=== PATIENT | male | born 1945 | race Caucasian/White ===

== ENCOUNTER → 2021-02-05 09:36 | Outpatient (CLI) | payer MEDICARE, OTHER, SELFPAY ==
[2021-02-05 19:47] LABS: COVID19 -Nasal RAPID Negative (Negative)
== END ==
PROVIDERS: Visit Provider Nurse Practitioner Family
DX: Z20.822 Contact with and (suspected) exposure to COVID-19 (principal); Z01.812 Encounter for preprocedural laboratory examination
CPT/HCPCS: 87635; C9803

== ENCOUNTER 2021-02-06 09:27 | Day surgery (SDC) | payer MEDICARE, OTHER, SELFPAY ==
[2021-02-06 10:19] VITALS: BP 140/82; PULSE 60; RESP 16; TEMP 36.4; O2SAT 98; BMI 26.2
[2021-02-06] MEDS: PROPARACAINE 0.5% OPHTH SOL 2 DROPS EYE-OP (10:29)
[2021-02-06] MEDS: CATARACT EYE COMPOUND (10 DROPS/SYRINGE) 3 DROPS EYE-OP (10:29)
--- NOTE | 2021-02-06 10:57 | PM.PREOP ---
Pre-operative Note Interval Note History & Physical reviewed/Exam performed by Physician: Yes Changes to H&P: No
--- NOTE | 2021-02-06 10:57 | PM.OP.1 ---
Operative Date/Time/Diagnoses Pre-op diagnosis: Nuclear Cataract Left eye Post-op diagnosis: same Procedure & Clinicians Same procedure as scheduled: Yes Surgeon: Sergei Pizano Anesthesia Type: MAC +/- and Sedation Operative Notes Procedure in detail: Patient brought to the operating suite. Tetracaine drops placed in the left eye. marking instrument used to lucas the vertical and horizontal meridians. Patient was prepped and draped in sterile manner. Wire lid speculum was placed in the eye. Betadine drops were placed on the eye. This was irrigated. Lidocaine jelly was placed on the eye. A paracentesis port was created with a side-port blade. 0.1 mL 1% preservative free lidocaine was injected into the anterior chamber. The anterior chamber was deepened with viscoelastic. 2.6 mm keratome was used to create a temporal clear corneal incision. Cystotome and Utrata forceps were used to create continuous tear capsulorrhexis. Balanced salt solution was used to hydro dissect the nucleus. The phacoemulsification handpiece was inserted and the nucleus was removed using the stop and chop technique. The irrigation aspiration handpiece was inserted and the remaining cortex was removed. Anterior chamber was deepened with viscoelastic. An Caldera [id number] intraocular lens with a power of 23.0 was injected into the capsular bag. Irrigation aspiration handpiece was inserted and the remaining viscoelastic was removed. The lens was rotated to the 180 degree meridian. Incision was hydrated with balanced salt solution and found to be leak free with pressure with Weck-Marline sponges. 0.1 mL Vigamox injected anterior chamber. 0.3 mL Kenalog 10 mg was injected subconjunctivally. Lid speculum was removed. The patient left the operating room in excellent condition. Complications: none Post-operative Condition: stable Disposition: same day surgery
[2021-02-06] MEDS: HYALURONATE SODIUM 30 MG-10 MG/ML SYRINGES 1 BOX INTRAOCULA (11:33)
[2021-02-06] MEDS: MOXIFLOXACIN INJ 4 MG/0.8 ML VIAL 0.5 MG EYE-OP (11:33)
[2021-02-06] MEDS: TETRACAINE 0.5% OPHTH DROPS 4 ML 2 DROPS EYE-OP (11:33)
[2021-02-06] MEDS: PHENYLEPHRINE/LIDOCAINE VIAL (OR) 0.2 ML EYE-OP (11:33)
[2021-02-06] MEDS: LIDOCAINE 2% (GLYDO) 6 ML GEL TOP (11:33)
[2021-02-06] MEDS: BALANCED SALT IRRIG SOLN NO.2 500 ML, EPINEPHrine 1 MG IRR (11:34)
[2021-02-06] MEDS: TRIAMCINOLONE 50 MG/5 ML VIAL INJ (11:34)
[2021-02-06 11:59] VITALS: BP 135/82; PULSE 60; RESP 16; TEMP 37.2; O2SAT 98
== END 2021-02-06 12:01 | disposition home or self-care (01) ==
PROVIDERS: Referring Provider Ophthalmology; Visit Provider Ophthalmology
PROC: (CPT 66984; principal; 2021-02-06 11:15)
DX: H25.12 Age-related nuclear cataract, left eye (principal); I10 Essential (primary) hypertension; Z95.0 Presence of cardiac pacemaker
CPT/HCPCS: 66984; J0171; J2250; J3301; V2787

== ENCOUNTER → 2021-02-19 11:01 | Outpatient (CLI) | payer MEDICARE, OTHER, SELFPAY ==
[2021-02-19 15:53] LABS: COVID19 -Nasal RAPID Negative (Negative)
== END ==
PROVIDERS: Visit Provider Physician Assistant
DX: Z01.812 Encounter for preprocedural laboratory examination (principal); Z20.822 Contact with and (suspected) exposure to COVID-19
CPT/HCPCS: 87635; C9803

== ENCOUNTER → 2021-02-20 08:22 | Day surgery (SDC) | payer MEDICARE, OTHER, SELFPAY ==
[2021-02-20 09:16] VITALS: BP 162/84; PULSE 60; RESP 14; TEMP 36.4; O2SAT 100; BMI 26.6
[2021-02-20] MEDS: PROPARACAINE 0.5% OPHTH SOL 2 DROPS EYE-OP (09:25)
[2021-02-20] MEDS: CATARACT EYE COMPOUND (10 DROPS/SYRINGE) 3 DROPS EYE-OP (09:25)
--- NOTE | 2021-02-20 10:22 | PM.PREOP ---
Pre-operative Note Interval Note History & Physical reviewed/Exam performed by Physician: Yes Changes to H&P: No
--- NOTE | 2021-02-20 10:22 | PM.OP.1 ---
Operative Date/Time/Diagnoses Pre-op diagnosis: Nuclear cataract right eye Procedure & Clinicians Procedure: Cataract Surgery Same procedure as scheduled: Yes Surgeon: Sergei Pizano Anesthesia Type: MAC +/- and Sedation Operative Notes Procedure in detail: Patient brought to the operating suite. Tetracaine drops placed in the right eye. Marking instrument was used to lucas the vertical and horizontal meridians. Patient was prepped and draped in sterile manner. Wire lid speculum was placed in the eye. Betadine drops were placed on the eye. This was irrigated. Lidocaine jelly was placed on the eye. A paracentesis port was created with a side-port blade. 0.1 mL 1% preservative free lidocaine was injected into the anterior chamber. The anterior chamber was deepened with viscoelastic. 2.6 mm keratome was used to create a temporal clear corneal incision. Cystotome and Utrata forceps were used to create continuous tear capsulorrhexis. Balanced salt solution was used to hydro dissect the nucleus. The phacoemulsification handpiece was inserted and the nucleus was removed using the stop and chop technique. The irrigation aspiration handpiece was inserted and the remaining cortex was removed. Anterior chamber was deepened with viscoelastic. An Caldera [id number] intraocular lens with a power of 22.5 was injected into the capsular bag. Irrigation aspiration handpiece was inserted and the remaining viscoelastic was removed. The lens was rotated to the 180 degree meridian. Incision was hydrated with balanced salt solution and found to be leak free with pressure with Weck-Marline sponges. 0.1 mL Vigamox injected anterior chamber. 0.3 mL Kenalog 10 mg was injected subconjunctivally. Lid speculum was removed. The patient left the operating room in excellent condition. Complications: none Post-operative Condition: stable Disposition: same day surgery
[2021-02-20] MEDS: HYALURONATE SODIUM 30 MG-10 MG/ML SYRINGES 1 BOX INTRAOCULA (10:42)
[2021-02-20] MEDS: TRIAMCINOLONE 50 MG/5 ML VIAL INJ (10:43)
[2021-02-20] MEDS: MOXIFLOXACIN INJ 4 MG/0.8 ML VIAL 0.5 MG EYE-OP (10:43)
[2021-02-20] MEDS: LIDOCAINE 2% (GLYDO) 6 ML GEL TOP (10:43)
[2021-02-20] MEDS: PHENYLEPHRINE/LIDOCAINE VIAL (OR) 0.2 ML EYE-OP (10:43)
[2021-02-20] MEDS: TETRACAINE 0.5% OPHTH DROPS 4 ML 2 DROPS EYE-OP (10:43)
[2021-02-20] MEDS: BALANCED SALT IRRIG SOLN NO.2 500 ML, EPINEPHrine 1 MG IRR (10:44)
[2021-02-20 11:08] VITALS: BP 156/84; PULSE 60; RESP 14; TEMP 36.4; O2SAT 97
== END | disposition home or self-care (01) ==
PROVIDERS: PCP Family Medicine; Referring Provider Ophthalmology; Visit Provider Ophthalmology
PROC: (CPT 66984; principal; 2021-02-20 10:15)
DX: H25.11 Age-related nuclear cataract, right eye (principal); I10 Essential (primary) hypertension; Z95.0 Presence of cardiac pacemaker
CPT/HCPCS: 66984; J0171; J2250; J3301; V2787

== ENCOUNTER → 2022-02-06 11:55 | Outpatient (CLI) | payer MEDICARE, OTHER, SELFPAY ==
[2022-02-06 13:51] LABS: Add Manual Diff / Slide Review NO; Basophils Absolute Auto 0 /uL (0-100); Basophils Percent Auto 0.2 % (0-2); Eosinophils Absolute Auto 100 /uL (0-450); Eosinophils Percent Auto 0.9 % (2-4); Hematocrit 41.6 % (41-53); Hemoglobin 14.4 g/dL (13.5-17.5); Lymphocytes Absolute Auto 1400 /uL (1100-4500); Lymphocytes Percent Auto 16.3 % (25-40); Mean Corpuscular HGB Conc 34.7 % (30-36); Mean Corpuscular Hemoglobin 30.1 PG (26-34); Mean Corpuscular Volume 86.7 fL (80-100); Monocytes Absolute Auto 600 /uL (0-900); Monocytes Percent Auto 6.9 % (3-14); Neutrophils Absolute Auto 6600 /uL (1500-7000); Neutrophils Percent Auto 75.7 % (50-75); Platelet Count 259 X10^3/uL (150-400); Red Cell Distribution Width 13.5 % (11.6-14.8); White Blood Cell Count 8.7 X10^3/uL (4.5-11.0)
[2022-02-06 14:01] LABS: Hemoglobin A1C% w Est Avg Glu 6.1 % (4.0-6.0)
[2022-02-06 14:30] LABS: Alanine Aminotransferase 28 IU/L (<50); Albumin 4.5 g/dL (3.5-5.0); Albumin Globulin Ratio 1.6 (1.0-2.8); Alkaline Phosphatase 70 U/L (38-126); Aspartate Aminotransferase 32 IU/L (17-59); BUN Creatinine Ratio 17.1 (6-22); Bilirubin Total 0.9 mg/dL (0.2-1.3); Blood Urea Nitrogen 13 mg/dL (9-20); Carbon Dioxide 29 mmol/L (22-32); Chloride 100 mmol/L (98-107); Cholesterol 170 mg/dL (140-199); Estimated Glomerular Filt Rate > 60 mL/min (>60); Globulin 2.9 g/dL (1.7-4.1); Glucose 106 mg/dL (80-110); HDL Cholesterol 37 mg/dL (40-60); HEMOLYSIS 18 (0-50); LDL Cholesterol Calculated 94 mg/dL (<100); Sodium 138 mmol/L (137-145); Total Protein 7.4 g/dL (6.3-8.2); Triglycerides 193 mg/dL (35-150)
[2022-02-06 15:58] LABS: Creatinine Urine Random 82.5 mg/dL
[2022-02-06 16:05] LABS: Microalbumi Creatinin Ratio Ur 10.9 ug/mg CR (<30); Microalbumin Urine Random 0.9 mg/dL (0-1.6)
== END ==
PROVIDERS: PCP Family Medicine; Referring Provider Family Medicine; Visit Provider Family Medicine
DX: I10 Essential (primary) hypertension (principal); R73.9 Hyperglycemia, unspecified; R79.9 Abnormal finding of blood chemistry, unspecified; E78.2 Mixed hyperlipidemia; M17.11 Unilateral primary osteoarthritis, right knee; G89.29 Other chronic pain; M51.9 Unspecified thoracic, thoracolumbar and lumbosacral intervertebral disc disorder; G47.30 Sleep apnea, unspecified; F32.9 Major depressive disorder, single episode, unspecified; M54.50 Low back pain, unspecified
CPT/HCPCS: 36415; 80053; 80061; 82043; 82570; 83036; 84443; 85025

== ENCOUNTER → 2024-05-18 14:03 | Outpatient (CLI) | payer MEDICARE, OTHER, SELFPAY ==
--- NOTE | 2024-06-02 13:28 | DIAB.MNT ---
Initial Diabetes Medical Nutrition Therapy Assessment Name: Tosha Hernandez (Lexa) Date: 05/18/23 Time: 2-3p Dx: Type II Diabetes Lexa presents for initial DM visit virtually using Portal . No FH of DM. Lives on [facility] Reports 2 back surgeries and a knee surgery over the last few years, which impacted his exercise regimen. 16-18oz water bottles x 1 in the morning + some water later in the day. Wears a catheter, which may limit his desire to drink more water per report. Stopped taking Metformin once he was up to 1 tablet, due to side effects: nausea, fast heartbeat, felt ?out of it?. No problem with the half tablet. Was taking one tablet per day in the AM. States his provider suggested a goal of hgA1c of 7-8%, which seems reasonable at this time. Reports stress eating at times. Endorses some medication management for stress. Use to do Meditation. Would like to get back to this. Interested in wt loss and thinks this would help his DM. Interested in glucose monitor to check for a month or two to learn more about what to eat. Denies symptoms of DM. Diet Recall: wake 730-8a 10-12p: Eggs and GF wrap OR protein shake- pro powder, oat milk, 1/3c blueberries, 1/2 banana, +/- peaches or cherries or pineapple +/- cereal (Heritage flakes 2c+, oatmilk) OR walnut butter in a wrap Sn: nothing OR rice cake 630-7p: salad, veggies, fish or chicken, +/- pasta 1.5c OR rice x 1.5c OR potatoes white or sweet potato 830-930a: apple +/- rice cake OR ice cream 1-2x per week 3oz wine 2-4 water bottles per day x 16-18oz States he does not know any ?indicators for DM? Has felt numbness in his fingers and toes, but this has subsided since starting exercise Anthropometrics: Ht: 69 Wt: 194# 09/2023 Weight history: Reports 190# today Personal goal: 170# Reports a UBW prior to surgeries between 175-180# Physical Activity: Recovering from back surgeries per report. 7 days per week exercises. Walking 1.5-2 mi walk daily, resistance training daily x 20-30 mins, PT last appt completed recently. Reports he thinks he could do more for exercise, but does not want to over do it with his back. Self-Monitoring Blood Glucose: none Diabetes Medications: Metformin--not taking Pertinent Labs: HgA1c: 8.2% 03/2024 Past Medical History: (Last Updated 09/10/22 @ 10:31 by Milton Quiroz MD) Arthritis (~1986) Bradycardia (~2016) Chicken pox (~1952) Chronic back pain (~1973) Depression (~2014) Hemorrhoid (~1974) History of squamous cell carcinoma Intermittent atrial fibrillation Lumbar disc disease (~1973) Measles (~1953) Sleep apnea (~2009) Tinnitus Urinary disorder (~2020) Nutrition Rx: Plate Method Nutrition Diagnosis: - Predicted excessive CHO intake r/t nutrition knowledge deficit aeb diet recall and pt report Intervention: This participant was very receptive. Provided appropriate educational handouts. Discussed the following topics: Completed intake assessment. Discussed barriers to care. Brief pathophysiology of T2DM HgA1c, its correlation to blood glucose numbers, and rationale for goal Plate Method, impact of macronutrients on blood sugar, meal timing, pairing macronutrients and spreading out carbohydrates for better blood glucose management Recommended servings for carbohydrates at meals and snacks Heart health nutrition Stress eating and coping Symptoms of DM Brief discussion of CGM Created SMART goals for patient self-care and success. Goals: Restart Meditation Try to keep carbs to 1c at dinner Move carbs 3 hours from each other (ie apple after dinner) Aim for 3-4 water bottles per day Next time discuss nutrition in more detail Follow-up: DANA TEJADA follow-up in 3-4 weeks Loni Bradley RDN, TERRELL Certified Diabetes Care and Transmission Repairer P: [phone] Thank you for this referral
== END ==
PROVIDERS: PCP Family Medicine; Referring Provider Family Medicine
DX: E11.9 Type 2 diabetes mellitus without complications (principal); Z71.3 Dietary counseling and surveillance
CPT/HCPCS: 97802